=== PATIENT | female | born 1995 | race Asian ===

== ENCOUNTER 2025-01-07 16:12 | Outpatient (CLI) | payer OTHER, SELFPAY ==
[2025-01-10 12:49] LABS: HBs Antibody, Qual Positive (See Note); HBs Antibody, Quant 28.6 mIU/mL (See Note); Hepatitis B Core Antibody Negative (Negative); Hepatitis B surface Ag Negative (Negative); Hepatitis C Ab w Rflx HCV PCR Negative (Negative)
== END 2025-01-07 16:13 | disposition home or self-care (01) ==
LOC: LBO 16:13
PROVIDERS: PCP Family Medicine; Visit Provider Family Medicine
DX: Z78.9 Other specified health status (principal)
CPT/HCPCS: 36415; 86704; 86706; 86803; 87340